=== PATIENT | male | born 2000 | race Caucasian/White ===

== ENCOUNTER 2023-07-10 08:30 | Emergency (ER) | payer OTHER, SELFPAY ==
--- NOTE | 2023-07-10 10:05 | EDPHYS ---
Physician Documentation [facility] Name: Rodney Rojo Age: 23 yrs Sex: Male : 2000 Arrival Date: 07/10/2023 Time: 08:30 Bed 22 Private MD: ED Physician Zack Bustamante HPI: 07/10 08:49 This 23 yrs old Male presents to ER via Ambulatory with complaints of Fever, Vomiting. kb 08:49 Patient is a 23-year-old male with no medical history presents for cough, congestion, kb vomiting and fever that started 4 days ago.. Historical: - Allergies: 08:39 No Known Allergies; iw - Home Meds: 08:39 None [Active]; iw - PMHx: 08:39 None; iw - PSHx: 08:39 None; iw - Immunization history:: Adult Immunizations unknown. - Social history:: Smoking status: Patient reports the use of cigarette tobacco products, unknown amount. ROS: 08:49 Cardiovascular: Negative for chest pain, palpitations, and edema, kb 08:49 Constitutional: Positive for fever, 08:49 ENT: Positive for rhinorrhea, sinus congestion, 08:49 Respiratory: Positive for cough, 08:49 Abdomen/GI: Positive for nausea and vomiting, 08:49 All other systems are negative, Exam: 08:49 Constitutional: This is a well developed, well nourished patient who is awake, alert, kb and in no acute distress. Head/Face: Normocephalic, atraumatic. ENT: Moist Mucous membranes Cardiovascular: Regular rate Respiratory: Respirations even and unlabored. No increased work of breathing. Talking in full sentences Abdomen/GI: Soft, non-tender. No distention Skin: Warm, dry with normal turgor. Normal color. MS/ Extremity: Pulses equal, no cyanosis. Neurovascular intact. Full, normal range of motion. Neuro: Awake and alert, GCS 15, oriented to person, place, time, and situation. Moves all extremities. Normal gait. Vital Signs: 08:38 BP 124 / 89; Pulse 87; Resp 19; Temp 98.7; Pulse Ox 99% on R/A; Weight 120.2 kg; iw MDM: 08:34 Patient medically screened. kb 08:50 Differential diagnosis: Flu, COVID, URI. Data reviewed: vital signs, nurses notes. kb 09:24 I considered the following discharge prescriptions or medication management in the emergency department I discussed and recommended Over The Counter medications, Antibiotics: At this time antibiotics are not recommended, Antivirals: At this time, antivirals are not recommended. Counseling: I had a detailed discussion with the patient and/or guardian regarding the historical points, exam findings, and any diagnostic results supporting the discharge/admit diagnosis, lab results, the need for outpatient follow up, a family practitioner, to return to the emergency department if symptoms worsen or persist or if there are any questions or concerns that arise at home. 07/10 08:44 Order name: Flu; Complete Time: 09:11 kb 07/10 08:44 Order name: COVID-19 SARS RT PCR; Complete Time: :46 kb Administered Medications: 08:58 Drug: Ondansetron Oral Disintegrating Tablet Oral Disintegrating Tablet 4 mg PO once iw Route: PO; 09:30 Follow up: Response: No adverse reaction iw Disposition Summary: 07/10/23 10:05 Discharge Ordered Notes: Location: Home Condition: Stable Diagnosis - Influenza due to identified novel influenza A virus - B kb Followup: kb - With: Emergency Department - When: As needed - Reason: Worsening of condition Followup: kb - With: Private Physician - When: 2 - 3 days - Reason: Recheck today's complaints, Continuance of care, Re-evaluation by your physician Discharge Instructions: - Discharge Summary Sheet kb - Influenza, Adult, [id number] kb Forms: - Medication Reconciliation Form kb - Thank You Letter kb - Antibiotic Education kb - Prescription Opioid Use kb - Patient Portal Instructions kb - Leadership Thank You Letter Prescriptions: - Zofran 4 mg Oral tablet - take 1 tablet ORAL route every 6 hours As needed; 10 tablet; Refills: 0, kb Product Selection Permitted Addendum: 07/11/2023 11:39 I was immediately available for consultation during this patient's visit. I did not e c2 personally see the patient or guide the patient's care.. Signatures: Dispatcher [employer] Dianelys Cedillo FNP-C FNP-Korina Cazares RN RN iw Zack Bustamante MD MD ec2
--- NOTE | 2023-07-10 10:05 | ER ---
Nurse's Notes [facility] Name: Rodney Rojo Age: 23 yrs Sex: Male : 2000 Arrival Date: 07/10/2023 Time: 08:30 Bed 22 Private MD: Diagnosis: Influenza due to identified novel influenza A virus-B Presentation: 07/10 08:38 Chief complaint: Patient states: fever, vomiting, since Sunday , + cough , congestion. iw Coronavirus screen: Client presents with at least one sign or symptom that may indicate coronavirus-19. Ebola Screen: Patient negative for fever greater than or equal to 101.5 degrees Fahrenheit, and additional compatible Ebola Virus Disease symptoms Patient denies exposure to infectious person. Patient denies travel to an Ebola-affected area in the 21 days before illness onset. No symptoms or risks identified at this time. Initial Sepsis Screen: Does the patient meet any 2 criteria? No. Patient's initial sepsis screen is negative. Does the patient have a suspected source of infection? No. Patient's initial sepsis screen is negative. Risk Assessment: Do you want to hurt yourself or someone else? Patient reports no desire to harm self or others. Onset of symptoms was July 09, 2023. 08:38 Method Of Arrival: Ambulatory iw 08:38 Acuity: KOBI 4 iw Historical: - Allergies: 08:39 No Known Allergies; iw - Home Meds: 08:39 None [Active]; iw - PMHx: 08:39 None; iw - PSHx: 08:39 None; iw - Immunization history:: Adult Immunizations unknown. - Social history:: Smoking status: Patient reports the use of cigarette tobacco products, unknown amount. Screenin:02 [facility] ED Fall Risk Assessment (Adult) Score/Fall Risk Level 0 - 2 = Low Risk. Abuse iw screen: Denies threats or abuse. Denies injuries from another. Nutritional screening: No deficits noted. Tuberculosis screening: No symptoms or risk factors identified. Assessment: 09:01 General: Appears in no apparent distress. Behavior is calm, cooperative. Pain: Denies iw pain. Neuro: Level of Consciousness is awake, alert, obeys commands, Oriented to person, place, time, situation, Moves all extremities. Respiratory: Respiratory effort is even, unlabored, Respiratory pattern is regular, symmetrical. GI: Abdomen is non-distended, Reports nausea. Derm: Skin is intact, is healthy with good turgor. Vital Signs: 08:38 BP 124 / 89; Pulse 87; Resp 19; Temp 98.7; Pulse Ox 99% on R/A; Weight 120.2 kg; iw ED Course: 08:33 Patient arrived in ED. rg4 08:33 Dianelys Foley FNP-C is [facility]. kb 08:33 Zack Bustamante MD is Attending Physician. kb 08:35 Dianelys Foley FNP-C is PHCP. ec2 08:39 Triage completed. iw 08:39 Arm band placed on. iw 08:49 Zack Bustamante MD is Attending Physician. ec2 08:58 Korina Heath, RN is Primary Nurse. iw 09:02 Patient has correct armband on for positive identification. Provided Education on: iw medication. 10:34 No provider procedures requiring assistance completed. Patient did not have IV access iw during this emergency room visit. Administered Medications: 08:58 Drug: Ondansetron Oral Disintegrating Tablet Oral Disintegrating Tablet 4 mg PO once iw Route: PO; 09:30 Follow up: Response: No adverse reaction iw Medication: 09:02 VIS not applicable for this client. iw Outcome: 10:05 Discharge ordered by . kb 10:34 Discharged to home ambulatory, iw 10:34 Condition: good 10:34 Discharge instructions given to patient, Instructed on discharge instructions, follow up and referral plans. Demonstrated understanding of instructions, follow-up care, 10:35 Patient left the ED. iw Signatures: Dianelys Foley FNP-C FNP-Korina Cazares, Brook Monreal RN rg4 Zack Bustamante MD MD ec2
[2023-07-10 10:40] VITALS: BP 124/89; TEMP 98.7; O2SAT 99
== END 2023-07-10 10:35 | disposition home or self-care (01) ==
LOC: ER 08:30
DX: J10.1 Influenza due to other identified influenza virus with other respiratory manifestations (principal); Z11.52 Encounter for screening for COVID-19
CPT/HCPCS: 87635; 87804; 99283